=== PATIENT | male | born 1955 | race Caucasian/White ===

== ENCOUNTER 2020-04-09 12:18 | Inpatient (IN) | payer OTHER ==
[2020-04-09] MEDS ORDERED: ACETAMINOPHEN 1000 MG/100 ML VIAL (NON FORMULARY) IVPB ONE ×2 (12:27→21:25)
[2020-04-09] MEDS ORDERED: SODIUM CHLORIDE 0.9% 1000 ML INFUS.BAG IV ONE (12:27)
[2020-04-09] MEDS ORDERED: ACETAMINOPHEN INJECTION 100 ML IVPB ONE (12:58)
--- NOTE | 2020-04-09 12:59 | PDOC ---
History of Present Illness - General Chief Complaint: Pain Stated Complaint: RT LOWER ABD PAIN Time Seen by Provider: 04/09/20 12:27 History Source: Patient Exam Limitations: No Limitations - History of Present Illness Initial Comments: 04/09/20 12:56 64-year-old male here today complaining of lower abdominal pain. Patient states that he was COVID positive in October recovered after about 6 weeks symptoms are minor yesterday he recently went back to work and started going to the gym he was returning home on the train and suddenly felt lower abdominal pain located mostly suprapubic and right lower quadrant denies any flank pain when he got home he did check his temperature he had a fever of 101 denies any nausea or vomiting states the right lower quadrant pain is persisted to today is worse with walking denies any other moderating factors. Denies any dysuria urinary ur gency or frequency no previous abdominal surgeries no changes appetite or stool did have 1 loose stool today Past History - Medical History Allergies/Adverse Reactions: Allergies Allergy/AdvReac Type Severity Reaction Status Date / Time No Known Allergies Allergy Verified 04/09/20 12:22 Home Medications: Ambulatory Orders NK [No Known Home Medication] 04/09/20 COPD: No - Psycho-Social/Smoking History Smoking History: Never smoked Have you smoked in the past 12 months: No Information on smoking cessation initiated: No - Substance Abuse Hx (Audit-C & DAST Scrn) How often the patient has a drink containing alcohol: Never Score: In Men: 4 or > Positive; In Women: 3 or > Positive: 0 Screen Result (Pos requires Nsg. Audit-10AR): Negative In the last yr the pt used illegal drug/Rx for NonMed reason: No Score: Yes response is considered Positive: 0 Screen Result (Positive result requires Nsg. DAST-10): Negative Review of Systems - Review of Systems HEENTM: No: Blurred Vision, Tearing Respiratory: No: Cough, Orthopnea, Shortness of Breath Cardiac (ROS): No: Chest Pain, Edema ABD/GI: Yes: Diarrhea, Other (abd pain) Musculoskeletal: No: Back Pain, Joint Pain, Muscle Weakness Integumentary: No: Bruising, Change in Color All Other Systems: Reviewed and Negative *Physical Exam - Vital Signs Last Vital Signs Temp Pulse Resp BP Pulse Ox 99.1 F 87 20 139/77 98 04/09/20 12:22 04/09/20 12:22 04/09/20 12:22 04/09/20 12:22 04/09/20 12:22 - Physical Exam 04/09/20 12:58 Awake alert no acute distress lungs are clear bilaterally heart is regular murmurs rubs or gallops abdomen is soft there suprapubic and right lower quadrant tenderness no rebound or guarding no CVA tenderness. Extremities are warm well perfused no rash no swelling neurological patient is awake alert and oriented x3 ED Treatment Course - LABORATORY CBC & Chemistry Diagram: 04/09/20 13:10 04/09/20 13:10 - RADIOLOGY Radiology Studies Ordered: Category Date Time Status ABDOMEN & PELVIS CT WITH CONTR [CT] Stat CT Scan 04/09/20 12:27 Ordered Medical Decision Making - Medical Decision Making 04/09/20 12:58 64-year-old male here with right lower quadrant pain differential includes UTI pyelo-appendicitis other gastroenteritis plan basic labs CT abdomen and pelvis with p.o. contrast IV fluids and Tylenol for his pain. CAT scan is currently broken adapts very patient will require transfer to [facility] for CT abdomen pelvis 04/09/20 17:29 case d/w dr Dawkins, will go to night team under dr reynolds. pt to be transferred to [facility]. Discharge - Discharge Information Problems reviewed: Yes Clinical Impression/Diagnosis: Appendicitis Condition: Improved - Admission Yes - Follow up/Referral - Patient Discharge Instructions - Post Discharge Activity
[2020-04-09 13:37] LABS: BASO % 0.8 % (0-2.0); EOS % 0.1 % (0-4.5); HEMATOCRIT 48.4 % (35.4-49); HEMOGLOBIN 16.1 GM/dl (11.7-16.9); LYMPH % 8.4 % (8-40); MCH 31.6 pg (25.7-33.7); MCHC 33.3 g/dl (32.0-35.9); MEAN CELL VOLUME 94.9 fl (80-96); MEAN PLT VOLUME 8.4 fl (7.5-11.1); MONO % 3.8 % (3.8-10.2); NEUT % 86.9 % (42.8-82.8); PLATELET COUNT 287 K/MM3 (134-434); RDW 13.4 % (11.9-15.9)
[2020-04-09 13:45] LABS: ALBUMIN 4.3 g/dl (3.4-5.0); BILIRUBIN,TOTAL 1.3 mg/dl (0.2-1); POTASSIUM 3.7 mmol/L (3.5-5.1); TOT PROT 7.7 g/dl (6.4-8.2)
[2020-04-09 13:54] LABS: INR 1.32 (0.82-1.09); PROTHROMBIN TIME (PATIENT) 14.7 SEC (10.2-13.0)
[2020-04-09] MEDS ORDERED: PIPERACILLIN/TAZOB 3.375 GM 3.375 GM in DEXTROSE 5%-WATER - 50 ML IVPB ONE (16:18)
[2020-04-09] MEDS ORDERED: PIPERACILLIN/TAZOB 3.375 GM 3.375 GM/50 ML BAG IVPB ONE (16:38)
[2020-04-09] MEDS: LACTATED RINGERS SOLUTION 1,000 ML/1,000 ML INFUS.BAG IV SCH ×2 (17:47→22:00)
[2020-04-09 23:29] VITALS: BMI 24.4
[2020-04-10] MEDS: LACTATED RINGERS SOLUTION 1,000 ML/1,000 ML INFUS.BAG IV SCH (06:12)
--- NOTE | 2020-04-10 08:42 | CONSULT ---
<Lelo Brown - Last Filed: 04/10/20 10:34> - Consultation REQUESTING PROVIDER: CONSULT REQUEST: We have been asked to surgically evaluate this patient for acute appendicitis. Hospitalist:Roula Bruner HISTORY OF PRESENT ILLNESS: The patient is a 64 yo male who presented to the ER for acute lower abd pain. He states that on Monday he had a fever to 101, took tylenol and went to bed. He awoke and had abd pain located in his RLQ. No nausea or emesis. He has developed some diarrhea overnight, non-bloody. He denies any CP/SOB. His pain is a little improved with IV tylenol. PMHx: GERD-had EGD years ago PSHx: denies Home Medications Medication Instructions Recorded NK [No Known Home Medication] 04/09/20 Allergies Allergy/AdvReac Type Severity Reaction Status Date / Time No Known Allergies Allergy Verified 04/09/20 12:22 REVIEW OF SYSTEMS: CONSTITUTIONAL: Present: fever, chills CARDIOVASCULAR: Absent: chest pain, palpitations, irregular heart rate RESPIRATORY: Absent: cough, shortness of breath GENITOURINARY: Absent: dysuria, hematuria MUSCULOSKELETAL: Absent: myalgia, arthralgia, joint swelling, back pain, neck pain PHYSICAL EXAM: GENERAL: Awake, alert, and fully oriented, in no acute distress. LUNGS: Clear to auscultation bilat anteriorly. HEART: Regular rate and rhythm. No murmurs ABDOMEN: Soft, not distended. RLQ tenderness to palpation LOWER EXTREMITIES: No peripheral edema. Vital Signs Temperature 98.7 F 04/10/20 05:42 Pulse Rate 91 H 04/10/20 05:42 Respiratory Rate 16 04/10/20 05:42 Blood Pressure 106/54 L 04/10/20 05:42 O2 Sat by Pulse Oximetry (%) 99 04/10/20 05:42 Lab Results WBC 10.0 K/mm3 (4.0-10.8) 04/09/20 13:10 RBC 5.10 M/mm3 (4.00-5.60) 04/09/20 13:10 Hgb 16.1 GM/dl (11.7-16.9) 04/09/20 13:10 Hct 48.4 % (35.4-49) 04/09/20 13:10 MCV 94.9 fl (80-96) 04/09/20 13:10 MCHC 33.3 g/dl (32.0-35.9) 04/09/20 13:10 RDW 13.4 % (11.9-15.9) 04/09/20 13:10 Plt Count 287 K/MM3 (134-434) 04/09/20 13:10 INR 1.32 (0.82-1.09) H 04/09/20 12:47 Sodium 135 mmol/L (136-145) L 04/09/20 13:10 Potassium 3.7 mmol/L (3.5-5.1) 04/09/20 13:10 Chloride 102 mmol/L (98-107) 04/09/20 13:10 Carbon Dioxide 26 mmol/L (21-32) 04/09/20 13:10 Anion Gap 7 MMOL/L (8-16) L 04/09/20 13:10 BUN 15.0 mg/dl (7-18) 04/09/20 13:10 Creatinine 1.0 mg/dl (0.55-1.3) 04/09/20 13:10 Random Glucose 96 mg/dl (74-106) 04/09/20 13:10 Calcium 9.0 mg/dl (8.5-10) 04/09/20 13:10 CT scan with oral/iv contrast: acute appendicitis without abscess or phlegmon Problem List - Problems (1) Appendicitis Assessment/Plan: pt with evidence of acute appendicitis, plan for the OR today. He remains npo, IV zosyn yesterday, will give antibiotics at time of surgery. Pt seen and examined today with Dr Figueroa, consent obtained for [facility] appy today Problems reviewed: Yes Code(s): K37 - UNSPECIFIED APPENDICITIS Qualifiers: Appendicitis type: acute appendicitis <Lars Figueroa - Last Filed: 04/21/20 08:04> - Consultation Attending Surgeon: I personally saw and examined the patient. My examination reveals a patient with acute appendicitis. I discussed the case with the surgical PA and agree with their findings and plan of care with any exceptions as noted. ~ Lars Figueroa MD, FACS
[2020-04-10] MEDS ORDERED: PIPERACILLIN/TAZOB 3.375 GM 3.375 GM in DEXTROSE 5%-WATER - 50 ML IVPB ONE (09:59)
[2020-04-10] MEDS ORDERED: ENOXAPARIN NA (PORCINE) 40 MG/0.4 ML DISP.SYRIN SQ SCH (10:00)
--- NOTE | 2020-04-10 10:07 | HP ---
CHIEF COMPLAINT: abdominal pain PCP: HISTORY OF PRESENT ILLNESS: Pt is a 64 y/o male with no PMH who presents with fever and lower abdominal pain. He reports mild abdominal cramping over the "last few days" but was not significant. Then, he had a fever of 101.5 the night of 04/08. When he presented to [facility] on 04/09, pt reports chills and intense abdominal pain. The pain is currently improved and described as "soreness" and in the RLQ worse with movement. He also has been having watery diarrhea with no blood. He currently denies chills, nausea, vomiting, dysuria, flank pain, frequency. ER course was notable for: (1) CT abdomen- acute appendicitis, small/mod fat-containing umbilical hernia, probable incidental b/l perirenal cysts (2) IVF, Zosyn, Ofirmev PAST MEDICAL HISTORY: none PAST SURGICAL HISTORY: none Social History: Smoking: denies Alcohol: socially Drugs: denies Allergies No Known Allergies Allergy (Verified 04/09/20 12:22) HOME MEDICATIONS: Home Medications Medication Instructions Recorded NK [No Known Home Medication] 04/09/20 REVIEW OF SYSTEMS see HPI PHYSICAL EXAMINATION Vital Signs - 24 hr 04/09/20 04/09/20 04/09/20 12:22 16:15 20:10 Temperature 99.1 F 98.3 F Pulse Rate 87 Pulse Rate [ 96 H Right] Respiratory 20 20 Rate Blood Pressure 139/77 Blood Pressure 173/77 H [Right Arm] O2 Sat by Pulse 98 99 98 Oximetry (%) 04/09/20 04/09/20 04/09/20 20:43 21:00 23:27 Temperature 100 F H 99.7 F H Pulse Rate 104 H 99 H Pulse Rate [ Right] Respiratory 18 18 Rate Blood Pressure 117/73 Blood Pressure [Right Arm] O2 Sat by Pulse 97 97 Oximetry (%) 04/10/20 04/10/20 01:00 05:42 Temperature 98.4 F 98.7 F Pulse Rate 96 H 91 H Pulse Rate [ Right] Respiratory 16 16 Rate Blood Pressure 115/69 106/54 L Blood Pressure [Right Arm] O2 Sat by Pulse 98 99 Oximetry (%) GENERAL: A&Ox3, in no acute distress. HEAD: Normal with no signs of trauma. EYES: PERRL, EOMI. EARS, NOSE, THROAT: Ears normal, nares patent, moist mucous membranes. NECK: Normal range of motion. LUNGS: CTAB, no wheezes or crackles. HEART: RRR, no murmur. ABDOMEN: Soft, normoactive bowel sounds, RLQ tender to light palpation with minimal guarding. MUSCULOSKELETAL: Normal range of motion at all joints. UPPER EXTREMITIES: Warm, well-perfused. No peripheral edema. LOWER EXTREMITIES: Warm, well-perfused. No peripheral edema. NEUROLOGICAL: Cranial nerves II-XII grossly intact. Normal speech. PSYCHIATRIC: Cooperative. Good eye contact. Appropriate mood and affect. SKIN: Warm, dry, normal turgor. Laboratory Results - last 24 hr 04/09/20 04/09/20 04/09/20 12:47 13:10 13:10 WBC 10.0 RBC 5.10 Hgb 16.1 Hct 48.4 MCV 94.9 MCH 31.6 MCHC 33.3 RDW 13.4 Plt Count 287 MPV 8.4 Absolute Neuts (auto) 8.7 Neutrophils % 86.9 H Lymphocytes % 8.4 Monocytes % 3.8 Eosinophils % 0.1 Basophils % 0.8 PT with INR 14.7 H INR 1.32 H PTT (Actin FS) 30.0 Sodium Potassium Chloride Carbon Dioxide Anion Gap BUN Creatinine Est GFR (CKD-EPI)AfAm Est GFR (CKD-EPI)NonAf Random Glucose Calcium Total Bilirubin AST ALT Alkaline Phosphatase Total Protein Albumin Urine Color Itzel Urine Appearance Slightly Urine pH 5.5 Urine Protein Negative Urine Glucose (UA) Negative Urine Ketones Trace Urine Blood Negative Urine Nitrite Negative Urine Bilirubin 1+ H Urine Urobilinogen >=8.0 e.u./dl Ur Leukocyte Esterase Negative 04/09/20 13:10 WBC RBC Hgb Hct MCV MCH MCHC RDW Plt Count MPV Absolute Neuts (auto) Neutrophils % Lymphocytes % Monocytes % Eosinophils % Basophils % PT with INR INR PTT (Actin FS) Sodium 135 L Potassium 3.7 Chloride 102 Carbon Dioxide 26 Anion Gap 7 L BUN 15.0 Creatinine 1.0 Est GFR (CKD-EPI)AfAm 92.42 Est GFR (CKD-EPI)NonAf 79.75 Random Glucose 96 Calcium 9.0 Total Bilirubin 1.3 H AST 24 ALT 22 Alkaline Phosphatase 91 Total Protein 7.7 Albumin 4.3 Urine Color Urine Appearance Urine pH Urine Protein Urine Glucose (UA) Urine Ketones Urine Blood Urine Nitrite Urine Bilirubin Urine Urobilinogen Ur Leukocyte Esterase ASSESSMENT/PLAN: Pt is a 64 y/o male with no PMH who presents with fever and lower abdominal pain for several days with CT findings consistent with acute appendicitis. #uncomplicated acute appendicitis -CT shows acute appendicitis with no abscess or perforation -leukocytosis 14.5, Tmax 100 overnight -surgery to perform lap appy today -pain control, start with Ofirmev -continue IV fluids -advance diet per surgery following surgery -ID consulted for abx recommendations, given Zosyn prior to surgery #b/l renal cysts -incidental findings on CT -recommended 3 month U/S f/u DVT Ppx Lovenox FEN LR 125mL/hr monitor labs NPO dispo med/surg appendectomy today FULL CODE Family Medical History Family History: Unremarkable Visit type - Emergency Visit Emergency Visit: Yes ED Registration Date: 04/09/20 Care time: The patient presented to the Emergency Department on the above date and was hospitalized for further evaluation of their emergent condition. - New Patient This patient is new to me today: Yes Date on this admission: 04/09/20 - Critical Care Critical Care patient: No ATTENDING PHYSICIAN STATEMENT I saw and evaluated the patient. I reviewed the resident's note and discussed the case with the resident. I agree with the resident's findings and plan as documented. SUBJECTIVE: OBJECTIVE: ASSESSMENT AND PLAN:
[2020-04-10] MEDS ORDERED: fentaNYL CITRATE 250 MCG/5 ML VIAL ONE (10:14)
[2020-04-10] MEDS ORDERED: MIDAZOLAM HCL 2 MG/2 ML SINGLE DOSE VIAL ONE (10:14)
[2020-04-10] MEDS ORDERED: PROPOFOL 20 ML ONE (10:14)
[2020-04-10] MEDS ORDERED: SUCCINYLCHOLINE CHLORIDE 200 MG/10 ML SYRINGE ONE (10:14)
[2020-04-10 10:27] LABS: BASO % 0.4 % (0-2.0); EOS % 0.1 % (0-4.5); HEMATOCRIT 38.9 % (35.4-49); HEMOGLOBIN 13.1 GM/dL (11.7-16.9); LYMPH % 10.8 % (8-40); MCH 30.6 pg (25.7-33.7); MCHC 33.7 g/dl (32.0-35.9); MEAN CELL VOLUME 91.1 fl (80-96); MEAN PLT VOLUME 7.9 fl (7.5-11.1); MONO % 6.2 % (3.8-10.2); NEUT % 82.5 % (42.8-82.8); PLATELET COUNT 222 K/MM3 (134-434); RBC 4.27 M/mm3 (4.00-5.60); RDW 13.8 % (11.9-15.9); WHITE BLOOD COUNT 14.5 K/mm3 (4.0-10.0)
[2020-04-10] MEDS ORDERED: PIPERACILLIN/TAZOBACTAM 3.375 GM VIAL IVPB ONE ×3 (10:32→20:50)
[2020-04-10] MEDS ORDERED: DEXTROSE 5%-WATER - 50 ML IVPB ONE ×2 (10:32→20:50)
[2020-04-10] MEDS ORDERED: ROCURONIUM BROMIDE 50 MG/5 ML SYRINGE ONE (11:08)
[2020-04-10 11:16] LABS: BLOOD UREA NITROGEN 11.6 mg/dL (7-18); CALCIUM 8.5 mg/dL (8.5-10.1); CREATININE 0.9 mg/dL (0.55-1.3); POTASSIUM 3.6 mmol/L (3.5-5.1); TOT PROT 6.5 g/dl (6.4-8.2)
[2020-04-10] MEDS ORDERED: DEXAMETHASONE SOD PHOSPHATE 4 MG/1 ML VIAL ONE (11:34)
[2020-04-10] MEDS ORDERED: BUPIVACAINE HCL/PF 0.5% (5 MG/ML) 30 ML VIAL IJ ONE (12:05)
[2020-04-10] MEDS ORDERED: GLYCOPYRROLATE 0.2 MG/1 ML VIAL ONE (12:15)
[2020-04-10] MEDS ORDERED: NEOSTIGMINE METHYLSULFATE 0.5 MG/ML - 10 ML MDV ONE (12:15)
[2020-04-10] MEDS ORDERED: PIPERACILLIN/TAZOB 3.375 GM 3.375 GM in DEXTROSE 5%-WATER - 50 ML IVPB SCH (12:30)
--- NOTE | 2020-04-10 12:44 | OP ---
Operative Note - Note: Operative Date: 04/10/20 Pre-Operative Diagnosis: acute appendicitis Operation: laparoscopic appendectomy Findings: gangrenous perforated appendicitis; no abscess; phlegmon only. Post-Operative Diagnosis: Other (gangrenous perforated appendicitis) Surgeon: Lars Figueroa Music Teacher: Lelo Brown Anesthesiologist/DENTAL HYGIENE TEACHER: Marcos Peterson Anesthesia: General Specimens Removed: appendix Estimated Blood Loss (mls): 20 Drains & Tubes with Location: 10 mm DELPHINE in the right lower quadrant
[2020-04-10] MEDS ORDERED: ONDANSETRON 4 MG/2 ML VIAL IVPUSH PRN ×2 (12:46→13:20)
[2020-04-10] MEDS ORDERED: LACTATED RINGERS SOLUTION 1,000 ML IV SCH (13:00)
--- NOTE | 2020-04-10 13:11 | SURG ---
Surgery [employer] Note [employer]: Lelo Brown PA-C Date of Service: 04/10/20 Diagnosis: acute appendicitis Procedure: laparoscopic appendectomy I was present for the entirety of the operative procedure. For further detail, please refer to operative report. Visit type - Case Type Case Type: ED Admission - Emergency Emergency Visit: Yes Care time: The patient presented to the Emergency Department on the above date and was hospitalized for further evaluation of their emergent condition. - New patient This patient is new to me today: Yes Date on this admission: 04/10/20
[2020-04-10] MEDS ORDERED: ACETAMINOPHEN 1000 MG/100 ML VIAL (NON FORMULARY) IVPB PRN (13:13)
[2020-04-10] MEDS ORDERED: ACETAMINOPHEN INJECTION 100 ML IVPB ONE (13:49)
--- NOTE | 2020-04-10 15:46 | PN ---
Teaching Attending Note Name of Resident: Kerri Quesada ATTENDING PHYSICIAN STATEMENT I saw and evaluated the patient. I reviewed the resident's note and discussed the case with the resident. I agree with the resident's findings and plan as documented. SUBJECTIVE: Patient seen and examined at bedside, s/p lap appendectomy POD#0, tolerated procedure well. Admitted to medicine service for further management, Surgery team following. VSS. OBJECTIVE: GENERAL: A&Ox3, in no acute distress. HEAD: Normal with no signs of trauma. EYES: PERRL, EOMI. EARS, NOSE, THROAT: Ears normal, nares patent, moist mucous membranes. NECK: Normal range of motion. LUNGS: CTAB, no wheezes or crackles. HEART: RRR, no murmur. ABDOMEN: Soft, normoactive bowel sounds, RLQ tenderness w/ some rebound. MUSCULOSKELETAL: Normal range of motion at all joints. UPPER EXTREMITIES: Warm, well-perfused. No peripheral edema. LOWER EXTREMITIES: Warm, well-perfused. No peripheral edema. t. SKIN: Warm, dry, normal turgor. Vital Signs - 24 hr 04/09/20 04/09/20 04/09/20 16:15 20:10 20:43 Temperature 98.3 F 100 F H Pulse Rate 104 H Pulse Rate [ 96 H Right] Respiratory 20 18 Rate Blood Pressure 117/73 Blood Pressure 173/77 H [Right Arm] O2 Sat by Pulse 99 98 97 Oximetry (%) 04/09/20 04/09/20 04/10/20 21:00 23:27 01:00 Temperature 99.7 F H 98.4 F Pulse Rate 99 H 96 H Pulse Rate [ Right] Respiratory 18 16 Rate Blood Pressure 115/69 Blood Pressure [Right Arm] O2 Sat by Pulse 97 98 Oximetry (%) 04/10/20 04/10/20 04/10/20 05:42 09:52 12:39 Temperature 98.7 F 99.4 F 98.3 F Pulse Rate 91 H 88 68 Pulse Rate [ Right] Respiratory 16 16 15 Rate Blood Pressure 106/54 L 122/65 118/69 Blood Pressure [Right Arm] O2 Sat by Pulse 99 100 100 Oximetry (%) 04/10/20 04/10/20 04/10/20 12:55 13:10 13:25 Temperature Pulse Rate 61 67 67 Pulse Rate [ Right] Respiratory 16 16 14 Rate Blood Pressure 125/65 129/65 135/72 Blood Pressure [Right Arm] O2 Sat by Pulse 100 100 100 Oximetry (%) 04/10/20 04/10/20 04/10/20 13:40 13:55 14:10 Temperature 98.6 F Pulse Rate 70 72 76 Pulse Rate [ Right] Respiratory 14 16 16 Rate Blood Pressure 128/65 118/59 L 128/55 L Blood Pressure [Right Arm] O2 Sat by Pulse 100 100 100 Oximetry (%) 04/10/20 14:46 Temperature 98.6 F Pulse Rate 79 Pulse Rate [ Right] Respiratory 19 Rate Blood Pressure 119/67 Blood Pressure [Right Arm] O2 Sat by Pulse Oximetry (%) Laboratory Results - last 24 hr 04/10/20 04/10/20 10:10 10:10 WBC 14.5 H RBC 4.27 Hgb 13.1 Hct 38.9 MCV 91.1 MCH 30.6 MCHC 33.7 RDW 13.8 Plt Count 222 MPV 7.9 Absolute Neuts (auto) 11.9 H Neutrophils % 82.5 Lymphocytes % 10.8 Monocytes % 6.2 Eosinophils % 0.1 Basophils % 0.4 Nucleated RBC % 0 Sodium 138 Potassium 3.6 Chloride 104 Carbon Dioxide 25 Anion Gap 9 BUN 11.6 Creatinine 0.9 Est GFR (CKD-EPI)AfAm 104.98 Est GFR (CKD-EPI)NonAf 90.58 Random Glucose 81 Calcium 8.5 Total Bilirubin 1.0 AST 17 ALT 22 Alkaline Phosphatase 77 Total Protein 6.5 Albumin 3.0 L Home Medications Medication Instructions Recorded NK [No Known Home Medication] 04/09/20 Current Medications Generic Name Dose Route Start Last Admin Trade Name Elliottq PRN Reason Stop Dose Admin Acetaminophen 1,000 mg 04/10/20 13:13 04/10/20 13:50 Ofirmev Injection - IVPB 04/11/20 13:12 1,000 mg Q6H PRN Administration PAIN LEVEL 1-5 Enoxaparin Sodium 40 mg 04/11/20 10:00 Lovenox - SQ DAILY ALEIDA Piperacillin Sod/Tazobactam 50 mls @ 100 mls/hr 04/10/20 20:00 Sod 3.375 gm/ Dextrose IVPB Q8H-IV ALEIDA Protocol Lactated Ringer's 1,000 mls @ 125 mls/hr 04/10/20 13:20 Lactated Ringers Solution IV ASDIR ALEIDA Ondansetron HCl 4 mg 04/10/20 13:20 Zofran Injection IVPUSH Q6H PRN NAUSEA AND/OR VOMITING ASSESSMENT AND PLAN: 64 M Acute gangrenous appendicitis w/ perforation s/p lap appendectomy POD#0 DELPHINE drain placement RLQ Plan: Continue Zosyn, LR for IVF Trend CBC, if febrile send full workup Tylenol for fever/pain Send A1c/lipid/TSH DVT ppx as per Surgery team
[2020-04-10] MEDS: LACTATED RINGERS SOLUTION 1,000 ML IV SCH ×2 (18:36→23:13)
--- NOTE | 2020-04-10 20:29 | CONS ---
DATE OF CONSULTATION: DATE OF DICTATION: 04/10/2020 INFECTIOUS DISEASE CONSULTATION HISTORY OF PRESENT ILLNESS: The patient is a 64-year-old male evaluated for acute appendicitis. Patient is seen in the recovery room postoperatively. He presented to the hospital on April 09, 2020, with complaint of suprapubic and right lower quadrant abdominal pain associated with fever to 101. In the emergency room, he was evaluated. A CAT scan of abdomen and pelvis was performed and showed findings consistent with acute appendicitis. There was no abscess or phlegmon noted. Patient was taken to the operating room, where he underwent a laparoscopic cholecystectomy. According to the operative notes, he was noted to have a gangrenous perforated appendix, no abscess, phlegmon only. He was transferred to the recovery room with a drain in place. At the present time, he is sedated on pain medication. He has no complaints of pain. His course has been complicated with a low-grade fever and elevated white blood cell count. PAST MEDICAL HISTORY: Essentially negative. ALLERGIES: No known allergies. He did have COVID-19 in October 2019 from which he recovered. It does not appear he was admitted at that time. ALLERGIES: No known allergies. MEDICATION: Include: 1. Zosyn. 2. Lovenox. 3. Tylenol. SOCIAL HISTORY: He resides in the community with his significant other. He is a nonsmoker, nondrinker. SYSTEMS REVIEW: Neurologic: No loss of consciousness, seizure activity, focal weakness. Cardiac: Negative for chest pain or palpitations. Respiratory: Negative for cough or sputum production. Gastrointestinal: Negative vomiting or diarrhea. Genitourinary: Negative for urinary tract infection. LABORATORY DATA: White count 14.5, hematocrit 38.9, platelets 222, BUN 11, creatinine 0.9, liver enzymes normal. Urinalysis negative leukocyte esterase. COVID-19 PCR pending. No cultures have been obtained. PHYSICAL EXAMINATION: General: On physical examination, he is sedated in recovery room. He is in no acute distress. Vital signs: Temperature 99.4, T-max 100, blood pressure 122/65, pulse 88 regular, respirations 18 per minute. HEENT: Sclerae anicteric. Cardiovascular: Heart sounds S1, S2. Lungs: Clear. Abdomen: Soft. There is mild diffuse incisional tenderness. A Leonides-Rae drain is present in the left abdomen with serosanguineous drainage. Extremities: Negative for edema. IMPRESSION: 1. Postoperative laparoscopic appendectomy with gangrenous perforated appendix. 2. Rule out sepsis secondary to gastrointestinal source. 3. Fever, leukocytosis. Obtain blood cultures. Continue empiric coverage with Zosyn. Analgesics. Will follow. Thank you for the kind referral. MARIE WILCOX M.D. [id number]
[2020-04-10] MEDS: PIPERACILLIN/TAZOB 3.375 GM 3.375 GM in DEXTROSE 5%-WATER - 50 ML IVPB SCH (20:59)
[2020-04-11] MEDS ORDERED: PIPERACILLIN/TAZOBACTAM 3.375 GM VIAL IVPB ONE ×3 (02:48→17:09)
[2020-04-11] MEDS ORDERED: DEXTROSE 5%-WATER - 50 ML IVPB ONE ×3 (02:49→17:10)
[2020-04-11] MEDS: PIPERACILLIN/TAZOB 3.375 GM 3.375 GM in DEXTROSE 5%-WATER - 50 ML IVPB SCH ×3 (02:53→18:06)
[2020-04-11 08:08] LABS: HEMATOCRIT 37.5 % (35.4-49); HEMOGLOBIN 12.5 GM/dL (11.7-16.9); LYMPH % 8.7 % (8-40); MCH 30.9 pg (25.7-33.7); MCHC 33.4 g/dl (32.0-35.9); MEAN CELL VOLUME 92.4 fl (80-96); MEAN PLT VOLUME 8.5 fl (7.5-11.1); NEUT % 85.3 % (42.8-82.8); PLATELET COUNT 213 K/MM3 (134-434); RBC 4.06 M/mm3 (4.00-5.60); WHITE BLOOD COUNT 16.1 K/mm3 (4.0-10.0)
[2020-04-11 08:32] LABS: CALCIUM 8.8 mg/dL (8.5-10.1); CREATININE 0.9 mg/dL (0.55-1.3); POTASSIUM 4.9 mmol/L (3.5-5.1)
[2020-04-11] MEDS: LACTATED RINGERS SOLUTION 1,000 ML IV SCH ×3 (09:01→23:00)
[2020-04-11] MEDS: ENOXAPARIN NA (PORCINE) 40 MG/0.4 ML DISP.SYRIN SQ SCH (09:03)
--- NOTE | 2020-04-11 09:25 | PN ---
Progress Note, Physician Chief Complaint: doing well, passing gas and tolerating liquids, - Current Medication List Current Medications: Active Medications Acetaminophen (Ofirmev Injection -) 1,000 mg IVPB Q6H PRN PRN Reason: PAIN LEVEL 1-5 Stop: 04/11/20 13:12 Last Admin: 04/10/20 13:50 Dose: 1,000 mg Documented by: Enoxaparin Sodium (Lovenox -) 40 mg SQ DAILY ALEIDA Last Admin: 04/11/20 09:03 Dose: 40 mg Documented by: Piperacillin Sod/Tazobactam (Sod 3.375 gm/ Dextrose) 50 mls @ 100 mls/hr IVPB Q8H-IV ALEIDA; Protocol Last Admin: 04/11/20 09:02 Dose: 100 mls/hr Documented by: Lactated Ringer's (Lactated Ringers Solution) 1,000 mls @ 125 mls/hr IV ASDIR ALEIDA Last Admin: 04/11/20 09:01 Dose: 125 mls/hr Documented by: Ondansetron HCl (Zofran Injection) 4 mg IVPUSH Q6H PRN PRN Reason: NAUSEA AND/OR VOMITING - Objective Vital Signs: Vital Signs Temperature 72 F L 04/11/20 06:00 Pulse Rate 72 04/11/20 06:00 Respiratory Rate 20 04/11/20 06:00 Blood Pressure 121/68 04/11/20 06:00 O2 Sat by Pulse Oximetry (%) 98 04/11/20 06:00 Constitutional: Yes: Well Nourished Eyes: Yes: Conjunctiva Clear, EOM Intact HENT: Yes: Atraumatic, Normocephalic Neck: Yes: Supple, Trachea Midline Cardiovascular: Yes: Regular Rate and Rhythm Respiratory: Yes: Regular, CTA Bilaterally Gastrointestinal: Yes: Soft, Other (surgical site , tender but clean, drain in place, draining serous,) Musculoskeletal: Yes: WNL Edema: No Labs: CBC, BMP 04/11/20 06:35 04/11/20 06:35 INR, PTT INR 1.32 (0.82-1.09) H 04/09/20 12:47 Impression/Plan Impression/Plan: #uncomplicated acute appendicitis s/p appendectomy, is stable, drAIN IN place, on, Zosyn prior to surgery #b/l renal cysts -incidental findings on CT -recommended 3 month U/S f/u DVT Ppx Lovenox Visit type - Emergency Visit Emergency Visit: No - New Patient This patient is new to me today: Yes Date on this admission: 04/11/20 - Critical Care Critical Care patient: No - Discharge Referral Referred to [facility] Med P.C.: No
--- NOTE | 2020-04-11 09:37 | PN ---
Progress Note (short form) - Note Progress Note: Anesthesiologist postop note POD#1 S/P Lap appendectmy under GA. Pat seen and examined. VSS. Tolerating po liquids. Pain under control No apparent post anesthesia comlications.
--- NOTE | 2020-04-11 12:19 | PN ---
Progress Note (short form) - Note Progress Note: Attending Surgeon POD#1 s/p lap appendectomy Tolerated liquids and voided; passed flatu VSS AF abdo-soft; port site tenderness; port sites c/d/i; DELPHINE serous WBC 16.7 IMP: stable post op PLAN: OOB/advance diet trend WBC; continue drain. \ Lars Figueroa MD FACS
[2020-04-12] MEDS ORDERED: PIPERACILLIN/TAZOBACTAM 3.375 GM VIAL IVPB ONE ×2 (01:25→08:47)
[2020-04-12] MEDS ORDERED: DEXTROSE 5%-WATER - 50 ML IVPB ONE ×2 (01:25→08:47)
[2020-04-12] MEDS: PIPERACILLIN/TAZOB 3.375 GM 3.375 GM in DEXTROSE 5%-WATER - 50 ML IVPB SCH ×2 (01:32→10:58)
[2020-04-12 08:16] LABS: BASO % 0.2 % (0-2.0); EOS % 1.1 % (0-4.5); HEMOGLOBIN 11.9 GM/dL (11.7-16.9); LYMPH % 18.2 % (8-40); MCH 30.5 pg (25.7-33.7); MCHC 33.1 g/dl (32.0-35.9); MEAN CELL VOLUME 92.3 fl (80-96); MEAN PLT VOLUME 8.1 fl (7.5-11.1); MONO % 8.4 % (3.8-10.2); NEUT % 72.1 % (42.8-82.8); PLATELET COUNT 224 K/MM3 (134-434); RDW 13.7 % (11.9-15.9); WHITE BLOOD COUNT 9.1 K/mm3 (4.0-10.0)
[2020-04-12 08:54] LABS: POTASSIUM 4.2 mmol/L (3.5-5.1)
[2020-04-12 09:01] LABS: ALBUMIN 2.6 g/dl (3.4-5.0); BILIRUBIN,TOTAL 1.1 mg/dL (0.2-1); BLOOD UREA NITROGEN 8.6 mg/dL (7-18); CALCIUM 8.5 mg/dL (8.5-10.1); TOT PROT 6.3 g/dl (6.4-8.2)
--- NOTE | 2020-04-12 10:21 | PN ---
Physical Exam: SUBJECTIVE: Patient seen and examined OBJECTIVE: Vital Signs Period Temp Pulse Resp BP Sys/Bates Pulse Ox Last 24 Hr 97.7 F-98.7 F 68-83 18-20 115-153/62-84 96-100 GENERAL: The patient is awake, alert, and fully oriented, in no acute distress. HEAD: Normal with no signs of trauma. EYES: PERRL, extraocular movements intact, sclera anicteric, conjunctiva clear. No ptosis. ENT: Ears normal, nares patent, oropharynx clear without exudates, moist mucous membranes. NECK: Trachea midline, full range of motion, supple. LUNGS: Breath sounds equal, clear to auscultation bilaterally, no wheezes, no crackles, no accessory muscle use. HEART: Regular rate and rhythm, S1, S2 without murmur, rub or gallop. ABDOMEN: Soft, nontender, nondistended, normoactive bowel sounds, no guarding, no rebound, no hepatosplenomegaly, no masses. EXTREMITIES: 2+ pulses, warm, well-perfused, no edema. NEUROLOGICAL: Cranial nerves II through XII grossly intact. Normal speech, gait not observed. PSYCH: Normal mood, normal affect. SKIN: Warm, dry, normal turgor, no rashes or lesions noted Laboratory Results - last 24 hr 04/12/20 04/12/20 07:35 07:35 WBC 9.1 RBC 3.90 L Hgb 11.9 Hct 36.0 MCV 92.3 MCH 30.5 MCHC 33.1 RDW 13.7 Plt Count 224 MPV 8.1 Absolute Neuts (auto) 6.6 Neutrophils % 72.1 Lymphocytes % 18.2 D Monocytes % 8.4 Eosinophils % 1.1 D Basophils % 0.2 D Nucleated RBC % 0 Sodium 140 Potassium 4.2 Chloride 105 Carbon Dioxide 30 Anion Gap 4 L BUN 8.6 Creatinine 1.0 Est GFR (CKD-EPI)AfAm 92.42 Est GFR (CKD-EPI)NonAf 79.75 Random Glucose 89 Calcium 8.5 Total Bilirubin 1.1 H AST 27 ALT 17 Alkaline Phosphatase 58 Total Protein 6.3 L Albumin 2.6 L Active Medications Generic Name Dose Route Start Last Admin Trade Name Freq PRN Reason Stop Dose Admin Enoxaparin Sodium 40 mg 04/11/20 10:00 04/11/20 09:03 Lovenox - SQ 40 mg DAILY ALEIDA Administration Piperacillin Sod/Tazobactam 50 mls @ 100 mls/hr 04/10/20 20:00 04/12/20 01:32 Sod 3.375 gm/ Dextrose IVPB 100 mls/hr Q8H-IV ALEIDA Administration Protocol Lactated Ringer's 1,000 mls @ 125 mls/hr 04/10/20 13:20 04/11/20 23:00 Lactated Ringers Solution IV 125 mls/hr ASDIR ALEIDA Administration Ondansetron HCl 4 mg 04/10/20 13:20 Zofran Injection IVPUSH Q6H PRN NAUSEA AND/OR VOMITING ASSESSMENT/PLAN: 1. uncomplicated acute appendicitis - s/p appendectomy - DC zosyn and observe while off antibiotic therapy - diet advancement and drain management per surgery 2. bilateral renal cysts -incidental findings on CT -recommended 3 month U/S f/u 3. DVT Ppx -Lovenox - Patient is now ambulating around the unit 4. Ambien prn for inosmnia 4. DC once cleared from surgical standpoint.
--- NOTE | 2020-04-12 10:35 | PN ---
Progress Note (short form) - Note Progress Note: Attending Surgeon POD#2 Feels well; tolerating diet VSS AF abdo-soft; port sites c/d/i; DELPHINE serous WBC-nl IMP: doing well PLAN: Continue as per orders; advance diet; anticipate d/c 04/13/2020 Lars Figueroa MD FACS
[2020-04-12] MEDS: ENOXAPARIN NA (PORCINE) 40 MG/0.4 ML DISP.SYRIN SQ SCH (11:22)
[2020-04-12] MEDS ORDERED: ZOLPIDEM TARTRATE 5 MG TABLET PO PRN (12:28)
--- NOTE | 2020-04-12 12:44 | OP ---
DATE OF OPERATION: 04/10/2020 PREOPERATIVE DIAGNOSIS: Acute appendicitis. POSTOPERATIVE DIAGNOSIS: Gangrenous perforated appendicitis. PROCEDURE: Laparoscopic appendectomy. SURGEON: Lars Figueroa MD MANAGER RAIL: Lelo Brown PA-C ANESTHESIA: General. OPERATIVE FINDINGS: There was gangrenous perforated appendicitis. There was no evidence of an abscess or other fluid collection. There was a phlegmon only. The rest of the findings were unremarkable. PROCEDURE: The patient was placed on the operating room table in the supine position, and after induction of general anesthesia and placement of a Nascimento catheter, the patient's abdomen was prepped with ChloraPrep and draped in sterile fashion. A timeout was taken, and pneumoperitoneum established at the umbilicus, using a Veress needle to an intraabdominal pressure of 15 mmHg. Next, a 12-mm suprapubic port just to the left of the midline was placed without incident, and then a left lower quadrant 5-mm port. The patient was placed in the head-down position and rotated to the left and laparoscopy carried out and previously noted findings were observed. The appendix was grasped and using blunt dissection and the LigaSure device mobilized from the lateral abdominal wall. The mesoappendix was serially divided using the LigaSure device as well. Once the base of the appendix was identified at the confluence of the 3 tenia on the cecum, a 60-mm Endo ALLIE purple load stapler was placed across the base of the appendix and fired. The appendix was then placed in an Endo Catch and brought up to the abdominal wall at the 12-mm port site. The suture line was inspected for hemostasis and/or leak, and there was found to be none. The appendix was then removed with the 12-mm port, and sent the pathological examination. The 12-mm port was replaced and pneumoperitoneum reestablished, and hemostasis checked for and noted to be good. A 10-mm DELPHINE drain was introduced through the left lower quadrant 5-mm port site and positioned in the right lower quadrant/pelvis and the 5-mm port removed and the drain secured to the skin with 2-0 silk suture and then the drain was connected to bulb self-suction. The remaining ports were removed under laparoscopic vision, and the pneumoperitoneum evacuated. The defect at the suprapubic port site was closed with a single [id number] 0 Vicryl suture, and the port sites were injected with 0.5% Marcaine. The skin edges were reapproximated with interrupted 4-0 Biosyn followed by Steri-Strips and Band-Aid dressings. The patient was then aroused from anesthesia and prior to this the Nascimento catheter removed, and the patient transferred to post anesthesia care unit in stable condition awake and alert, estimated blood loss 20 mL, replacement crystalloid, drains one 10-mm Leonides-Rae in the right lower quadrant, specimen appendix to Pathology. I, Lars Figueroa, was physically present in the operating room from the time the patient was placed on the operating table until he was transferred to the postanesthesia care unit in my accompaniment. MD MALACHI Villareal/[id number] MTDD
--- NOTE | 2020-04-13 08:46 | PN ---
Progress Note (short form) - Note Progress Note: Surgery: Pt without complaints. Had BM and is tolerating a diet. Vital Signs Period Temp Pulse Resp BP Sys/Bates Pulse Ox Last 24 Hr 97.7 F-98.2 F 73-77 17-18 121-132/70-84 96-99 DELPHINE: 60 ml serosangrenous GEN: A&0x3, NAD ABD: soft, non-distended, inc tenderness. Inc c/d/i. Delphine removed with the tip intact. CBC, BMP 04/12/20 07:35 04/12/20 07:35 A/P: 64 s/p lap appy, POD#3 Drain removed today Plan for discharge to home, discharge instruction completed and follow up c are and plan d/w the patient. D/w Dr. Figueroa Problem List - Problems (1) Appendicitis Code(s): K37 - UNSPECIFIED APPENDICITIS Qualifiers: Appendicitis type: acute appendicitis
[2020-04-13] MEDS: ENOXAPARIN NA (PORCINE) 40 MG/0.4 ML DISP.SYRIN SQ SCH (10:00)
[2020-04-13 11:17] VITALS: BP 149/86; PULSE 75; TEMP 98.7
--- NOTE | 2020-04-13 12:10 | DS ---
Physical Exam: SUBJECTIVE: Patient seen and examined OBJECTIVE: Vital Signs Period Temp Pulse Resp BP Sys/Bates Pulse Ox Last 24 Hr 98.2 F-98.7 F 73-77 17-20 121-149/70-86 96-99 PHYSICAL EXAM GENERAL: The patient is awake, alert, and fully oriented, in no acute distress. HEAD: Normal with no signs of trauma. EYES: PERRL, extraocular movements intact, sclera anicteric, conjunctiva clear. ENT: Ears normal, nares patent, oropharynx clear without exudates, moist mucous membranes. NECK: Trachea midline, full range of motion, supple. LUNGS: Breath sounds equal, clear to auscultation bilaterally, no wheezes, no crackles, no accessory muscle use. HEART: Regular rate and rhythm, S1, S2 without murmur, rub or gallop. ABDOMEN: Soft, nontender, nondistended, normoactive bowel sounds, no guarding, no rebound, no hepatosplenomegaly, no masses. EXTREMITIES: 2+ pulses, warm, well-perfused, no edema. NEUROLOGICAL: Cranial nerves II through XII grossly intact. Normal speech, gait not observed. PSYCH: Normal mood, normal affect. SKIN: Warm, dry, normal turgor, no rashes or lesions noted. LABS Laboratory Last Values WBC 9.1 K/mm3 (4.0-10.0) 04/12/20 07:35 RBC 3.90 M/mm3 (4.00-5.60) L 04/12/20 07:35 Hgb 11.9 GM/dL (11.7-16.9) 04/12/20 07:35 Hct 36.0 % (35.4-49) 04/12/20 07:35 MCV 92.3 fl (80-96) 04/12/20 07:35 MCH 30.5 pg (25.7-33.7) 04/12/20 07:35 MCHC 33.1 g/dl (32.0-35.9) 04/12/20 07:35 RDW 13.7 % (11.9-15.9) 04/12/20 07:35 Plt Count 224 K/MM3 (134-434) 04/12/20 07:35 MPV 8.1 fl (7.5-11.1) 04/12/20 07:35 Absolute Neuts (auto) 6.6 K/mm3 (1.5-8.0) 04/12/20 07:35 Neutrophils % 72.1 % (42.8-82.8) 04/12/20 07:35 Lymphocytes % 18.2 % (8-40) D 04/12/20 07:35 Monocytes % 8.4 % (3.8-10.2) 04/12/20 07:35 Eosinophils % 1.1 % (0-4.5) D 04/12/20 07:35 Basophils % 0.2 % (0-2.0) D 04/12/20 07:35 Nucleated RBC % 0 % (0-0) 04/12/20 07:35 PT with INR 14.7 SEC (10.2-13.0) H 04/09/20 12:47 INR 1.32 (0.82-1.09) H 04/09/20 12:47 PTT (Actin FS) 30.0 SECONDS (25.2-36.5) 04/09/20 12:47 Sodium 140 mmol/L (136-145) 04/12/20 07:35 Potassium 4.2 mmol/L (3.5-5.1) 04/12/20 07:35 Chloride 105 mmol/L (98-107) 04/12/20 07:35 Carbon Dioxide 30 mmol/L (21-32) 04/12/20 07:35 Anion Gap 4 MMOL/L (8-16) L 04/12/20 07:35 BUN 8.6 mg/dL (7-18) 04/12/20 07:35 Creatinine 1.0 mg/dL (0.55-1.3) 04/12/20 07:35 Est GFR (CKD-EPI)AfAm 92.42 04/12/20 07:35 Est GFR (CKD-EPI)NonAf 79.75 04/12/20 07:35 Random Glucose 89 mg/dL (74-106) 04/12/20 07:35 Calcium 8.5 mg/dL (8.5-10.1) 04/12/20 07:35 Total Bilirubin 1.1 mg/dL (0.2-1) H 04/12/20 07:35 AST 27 U/L (15-37) 04/12/20 07:35 ALT 17 U/L (13-61) 04/12/20 07:35 Alkaline Phosphatase 58 U/L (45-117) 04/12/20 07:35 Total Protein 6.3 g/dl (6.4-8.2) L 04/12/20 07:35 Albumin 2.6 g/dl (3.4-5.0) L 04/12/20 07:35 Urine Color Itzel 04/09/20 13:10 Urine Appearance Slightly 04/09/20 13:10 Urine pH 5.5 (4.5-8) 04/09/20 13:10 Urine Protein Negative (NEGATIVE) 04/09/20 13:10 Urine Glucose (UA) Negative (NEGATIVE) 04/09/20 13:10 Urine Ketones Trace (NEGATIVE) 04/09/20 13:10 Urine Blood Negative (NEGATIVE) 04/09/20 13:10 Urine Nitrite Negative (NEGATIVE) 04/09/20 13:10 Urine Bilirubin 1+ (NEGATIVE) H 04/09/20 13:10 Urine Urobilinogen >=8.0 e.u./dl (0.2-1.0) 04/09/20 13:10 Ur Leukocyte Esterase Negative (NEGATIVE) 04/09/20 13:10 COVID-19 (KEIRY) Not detected (Not Detected) 04/09/20 16:28 HOSPITAL COURSE: 64 yo male who presented to the ER for acute lower abd pain. was found to have acute gangrenous appendicitis and was admitted for emergency appendectomy on 04/10/2020, pt had unevenful recovery period, tolerated diet, passed BM, drain removed and was discharged from hospital. Date of Admission:04/10/20 Date of Discharge: 04/13/20 Minutes to complete discharge: 40 Discharge Summary Problems reviewed: Yes Reason For Visit: APPENDICITIS Current Active Problems Appendicitis (Acute) Condition: Improved - Instructions Diet, Activity, Other Instructions: Dr. Figueroa Discharge Instructions Dear RADHIKA ESPARZA, Post Operative Instructions Physical activity Resume your normal everyday activity as tolerated no heavy lifting or exercise until seen by your surgeon. You may walk unlimited amounts of and climb stairs. You may resume driving the car when you feel safe and comfortable behind the wheel. Wound care You have a liquid bandage over your incisions. This will come off slowly on its own over the next few weeks. Please avoid picking at it if you notice it flaking. You may shower starting tomorrow. When showering allow soap and water to run over the incision. Do not scrub, pat dry after showering. Diet There are no dietary restrictions. Eat healthy, high-fiber foods. Drink 6 to 8 glasses of liquid each day. This will assist in keeping your bowels are regular. Pain management You may take Tylenol or acetaminophen or Ibuprofen (for example, Motrin, Advil etc.) Any pain prescription medication ordered should be taken as prescribed for moderate to severe pain. Call Dr. Figueroa for any of the following: Severe pain not relieved by medication Fever of 101 or higher Excessive bleeding or drainage on dressing Inability to urinate Call the office at [phone] for a post operative appointment in 7 - 10 days. Referrals: Lars Figueroa MD [Staff Physician] - Disposition: HOME - Home Medications Comprehensive Discharge Medication List: Ambulatory Orders NK [No Known Home Medication] 04/09/20 This patient is new to me today: Yes Date on this admission: 04/13/20 Emergency Visit: Yes ED Registration Date: 04/10/20 Care time: The patient presented to the Emergency Department on the above date and was hospitalized for further evaluation of their emergent condition. Critical Care patient: No - Discharge Referral Referred to [facility] No
--- NOTE | 2020-04-15 17:59 | PATH ---
Surgical Pathology Report Patient Name: RADHIKA ESPARZA Med. Rec. #: [id number] /Age/Gender: 1955 (Age: 64) / M Account: [id number] Location: [facility] MED/SURG Taken: 04/10/2020 Received: 04/10/2020 Reported: 04/15/2020 Physicians: MD SHERIDAN Saldaña Specimen(s) Received APPENDIX Clinical History Appendicitis Final Diagnosis APPENDIX, LAPAROSCOPIC APPENDECTOMY: ACUTE APPENDICITIS AND PERIAPPENDICITIS. Electronically Signed Verenice Oleary M.D. Gross Description Received in formalin, labeled "appendix," is a 4.4 cm. in length vermiform appendix with a stapled margin of resection and moderate attached fat. The serosa is mederos-red with focal exudate. Sectioning reveals a focally hemorrhagic lumen. The wall of the appendix averages 0.1 cm. in thickness. Sheriff sections are submitted in one cassette. /04/10/2020 [facility]04/10/2020
== END 2020-04-13 12:22 | disposition home or self-care (01) | DRG 340 ==
LOC: FER 12:18 → SUATTDRO 20:10 → UNDOADMIN 20:10 → J7W 20:10 → JASUSAT 20:10 → J7W 20:22 → JASUSAT 04-10 11:20 → J7W 04-10 11:20 → J8W 04-11 12:59
PROVIDERS: ADMIT Internal Medicine; ATTEND Student in an Organized Health Care Education/Training Program
PROC: 0DTJ4ZZ Resection of Appendix, Percutaneous Endoscopic Approach (ICD-10-PCS; principal; 2020-04-10 10:00)
DX: K35.32 Acute appendicitis with perforation, localized peritonitis, and gangrene, without abscess (principal); K21.9 Gastro-esophageal reflux disease without esophagitis; N28.1 Cyst of kidney, acquired; G47.00 Insomnia, unspecified
CPT/HCPCS: 36415; 74177-TC; 80048; 80053; 81003; 85025; 85610; 85730; 87040; 88304-TC; 94760; 99285-25; J0131; Q9967; U0003